=== PATIENT | female | born 1940 | race Caucasian/White ===

== ENCOUNTER 2018-10-19 00:05 | Emergency (ER) | payer OTHER ==
[~2018-10-19] VITALS: Ht 167.6 cm; Wt 68.9 kg
[~2018-10-19 00:05] MED LIST: VASOTEC2.5 MG PO
[2018-10-19] MEDS ORDERED: METFORMIN HCL500 MG (00:09)
[2018-10-19] MEDS ORDERED: NORVASC2.5 M1 (00:09)
== END 2018-10-19 18:14 | disposition home or self-care (01) ==
LOC: ER 00:05 → CPU-OBS 00:56 → ER 18:14
DX: R07.89 Other chest pain (principal); R10.11 Right upper quadrant pain; K80.00 Calculus of gallbladder with acute cholecystitis without obstruction; D69.49 Other primary thrombocytopenia; I10 Essential (primary) hypertension; E11.9 Type 2 diabetes mellitus without complications
CPT/HCPCS: 93005; 76700; G0378; G0379

== ENCOUNTER 2019-07-17 07:36 | Emergency (ER) | payer OTHER ==
[~2019-07-17] VITALS: Ht 160 cm; Wt 63.5 kg
[~2019-07-17 07:36] MED LIST changes: +METFORMIN HCL500 MG; +NORVASC2.5 M1
== END 2019-07-17 15:39 | disposition home or self-care (01) ==
LOC: ER 07:36
DX: K29.60 Other gastritis without bleeding (principal); R10.13 Epigastric pain